=== PATIENT | male | born 1985 | race Caucasian/White ===

== ENCOUNTER 2019-03-31 10:56 | Emergency (ER) | payer MEDICAID ==
[~2019-03-31] VITALS: Wt 97.5 kg
[2019-03-31 11:06] VITALS: BP 143/71; PULSE 62; RESP 18
[2019-03-31] MEDS ORDERED: MAG-19 PO (11:31)
[2019-03-31] MEDS ORDERED: DOCU-144 PO (11:31)
[2019-03-31] MEDS ORDERED: FAMO40TA5 PO (11:31)
--- NOTE | 2019-03-31 11:36 | ERD ---
ER Documentation Chief Complaint Chief Complaint ap x5 days, constipation HPI Is a 33-year-old male who is here complaining of epigastric pain for 5 days. Also constipation. Last bowel movement was yesterday but states it was just a small amount. No blood. States he went to [facility] a couple days ago and they did labs and testing on him all of which was negative and they gave him [place] which he states is not helping. Pain is constant epigastric nonradiating. No vomiting. ROS All systems reviewed and are negative except as per history of present illness. Medications Home Meds Active Scripts Famotidine* (Famotidine*) 40 Mg Tablet, 40 MG PO BID, #30 TAB Prov:TANYA BARRETT PA-C 03/31/19 Magaldrate/Simethicone* (Mylanta*) 355 Ml Susp, 30 ML PO QID PRN for GASTROINTESTINAL UPSET, #1 BOTTLE Prov:TANYA BARRETT PA-C 03/31/19 Docusate Sodium* (Colace*) 100 Mg Capsule, 100 MG PO TID, #30 CAP Prov:TANYA BARRETT PA-C 03/31/19 FmHx Family History: No diabetes Physical Exam Vitals Vital Signs Date Temp Pulse Resp B/P (MAP) Pulse Ox O2 O2 Flow FiO2 Time Delivery Rate 03/31/19 97.9 62 18 143/71 98 11:06 (95) Physical Exam INITIAL VITAL SIGNS: Reviewed by me GENERAL: Awake, alert and oriented x 4, well appearing, nontoxic, speaking in full sentences. No acute distress HEAD: Atraumatic NECK: Supple. No masses. Full range of motion. No meningismus. No midline tenderness. EYES: EOMI. PERRL. RESPIRATORY: Clear to auscultation bilaterally. Symmetric chest wall rise. No wheezing or rales. No accessory muscle use. CV: Regular rate and rhythm. No murmurs, rubs, or gallops. ABDOMEN: Soft, non-distended. Nontender. Negative [place]. Negative McBurneys point tenderness. No CVA tenderness bilaterally. No guarding. No rebound. Procedures/MDM The differential diagnosis includes but is not limited to appendicitis, cholelithiasis, cholecystitis, pancreatitis, hepatitis, gastritis, peptic ulcer disease, bowel obstruction, diverticulitis, renal disease including stones, torsion, AAA, pyelonephritis, and others. Patient exam is normal. States he was seen a couple days ago at [facility] and had a negative work-up. Low s uspicion for emergent etiology for his symptoms. He was given prescription for Mylanta, Colace, and Pepcid. Recommended avoiding spicy and greasy food. Patient counseled regarding my diagnostic impression and care plan. Prior to discharge all questions answered. Pt agrees with treatment plan and understands strict return precautions. Pt is instructed to follow up with primary care provider within 24-48 hours. Precautionary instructions provided including instructions to return to the ER if not improving or for any worsening or changing symptoms or concerns. Departure Diagnosis: Primary Impression: Abdominal pain Condition: Stable Patient Instructions: Abdominal Pain Additional Instructions: Llame al doctor MAANA y roman quintin LON PARA DENTRO DE 1-2 HEIN.Dgale a la secretaria que nosotros le instruimos hacer esta lon.Avise o llame si velasco condicin se empeora antes de la lon. Regresa aqui si peor o no mejor. TANYA BARRETT PA-C March 31, 2019 11:36
[2019-03-31] MEDS ORDERED: BELLADONNA/PHENOBARBITAL TAB PO STA (11:45)
[2019-03-31] MEDS ORDERED: LIDOCAINE/MYLANTA 40 ML BTL PO STA (11:45)
== END 2019-03-31 12:20 | disposition home or self-care (01) ==
LOC: FTE 10:56
DX: R10.13 Epigastric pain (principal)
CPT/HCPCS: Z7502; Z7610; 99283

== ENCOUNTER 2019-04-22 19:44 | Emergency (ER) | payer MEDICAID ==
[~2019-04-22] VITALS: Ht 160 cm; Wt 97.5 kg
[~2019-04-22 19:44] MED LIST: DOCU-144 PO; FAMO40TA5 PO; MAG-19 PO
[2019-04-22 19:57] VITALS: Ht 160 cm; Wt 97.5 kg
[2019-04-22] MEDS ORDERED: FAMOTIDINE 20 MG TAB PO ONE (21:00)
[2019-04-22] MEDS ORDERED: LIDOCAINE/MYLANTA 40 ML BTL PO ONE (21:00)
[2019-04-22] MEDS ORDERED: MAG-19 PO (22:13)
[2019-04-22] MEDS ORDERED: ACET-141 PO (22:13)
[2019-04-22] MEDS ORDERED: IBUP-1561 PO (22:13)
--- NOTE | 2019-04-22 22:15 | ERD ---
ER Documentation Chief Complaint Chief Complaint abdominal pain x 3 weeks ROS All systems reviewed and are negative except as per history of present illness. Medications Home Meds Active Scripts Magaldrate/Simethicone* (Mylanta*) 355 Ml Susp, 30 ML PO QID PRN for GASTROINTESTINAL UPSET, #1 BOTTLE Prov:FLOR HOOPER DO 04/22/19 Acetaminophen* (Acetaminophen*) 500 MG Extra Strength Tablet, 500 MG PO Q4H PRN for PAIN AND OR ELEVATED TEMP, #30 TAB Prov:FLOR HOOPER DO 04/22/19 Ibuprofen* (Motrin*) 400 Mg Tab, 400 MG PO Q6H PRN for PAIN AND OR ELEVATED TEM P, #30 TAB Prov:FLOR HOOPER DO 04/22/19 Famotidine* (Famotidine*) 40 Mg Tablet, 40 MG PO BID, #30 TAB Prov:TANYA BARRETT PA-C 03/31/19 Magaldrate/Simethicone* (Mylanta*) 355 Ml Susp, 30 ML PO QID PRN for GASTROINTESTINAL UPSET, #1 BOTTLE Prov:TANYA BARRETT PA-C 03/31/19 Docusate Sodium* (Colace*) 100 Mg Capsule, 100 MG PO TID, #30 CAP Prov:TANYA BARRETT PA-C 03/31/19 Allergies Allergies: Coded Allergies: No Known Allergy (Unverified , 03/31/19) PMhx/Soc Hx Miscellaneous Medical Probl: Yes (CHOLELITHIASIS, gastritis) Hx Alcohol Use: No Hx Substance Use: No Hx Tobacco Use: No Smoking Status: Never smoker Physical Exam Vitals Vital Signs Date Temp Pulse Resp B/P (MAP) Pulse Ox O2 O2 Flow FiO2 Time Delivery Rate 04/22/19 98.7 70 18 139/72 98 19:57 (94) Physical Exam Const: No acute distress Head: Atraumatic Eyes: Normal Conjunctiva ENT: Normal External Ears, Nose and Mouth. Neck: Full range of motion. No meningismus. Resp: Clear to auscultation bilaterally Cardio: Regular rate and rhythm, no murmurs Abd: Soft, non tender, non distended. Normal bowel sounds Skin: No petechiae or rashes Back: No midline or flank tenderness Ext: No cyanosis, or edema Neur: Awake and alert Psych: Normal Mood and Affect Result Diagram: 04/22/19204004/22/192040 Results 24 hrs Laboratory Tests Test 04/22/19 20:41 White Blood Count 8.3 10^3/ul Red Blood Count 4.97 10^6/ul Hemoglobin 14.1 g/dl Hematocrit 43.3 % Mean Corpuscular Volume 87.1 fl Mean Corpuscular Hemoglobin 28.4 pg Mean Corpuscular Hemoglobin Concent 32.6 g/dl Red Cell Distribution Width 12.5 % Platelet Count 253 10^3/UL Mean Platelet Volume 10.7 fl Immature Granulocytes % 0.200 % Neutrophils % 60.1 % Lymphocytes % 29.5 % Monocytes % 6.3 % Eosinophils % 3.3 % Basophils % 0.6 % Nucleated Red Blood Cells % 0.0 /100WBC Immature Granulocytes # 0.020 10^3/ul Neutrophils # 5.0 10^3/ul Lymphocytes # 2.4 10^3/ul Monocytes # 0.5 10^3/ul Eosinophils # 0.3 10^3/ul Basophils # 0.1 10^3/ul Nucleated Red Blood Cells # 0.0 10^3/ul Urine Color YELLOW Urine Clarity CLOUDY Urine pH 7.0 Urine Specific Ot[place] 1.017 Urine Ketones NEGATIVE mg/dL Urine Nitrite NEGATIVE mg/dL Urine Bilirubin NEGATIVE mg/dL Urine Urobilinogen 1+ mg/dL Urine Leukocyte Esterase NEGATIVE Debbie/ul Urine Microscopic RBC 0 /HPF Urine Microscopic WBC 2 /HPF Urine Amorphous Crystals FEW /HPF Urine Bacteria FEW /HPF Urine Hemoglobin NEGATIVE mg/dL Urine Glucose NEGATIVE mg/dL Urine Total Protein NEGATIVE mg/dl Sodium Level 142 mmol/L Potassium Level 4.1 mmol/L Chloride Level 106 mmol/L Carbon Dioxide Level 28 mmol/L Anion Gap 8 Blood Urea Nitrogen 21 mg/dl Creatinine 1.01 mg/dl Est Glomerular Filtrat Rate mL/min > 60 mL/min Glucose Level 101 mg/dl Calcium Level 9.2 mg/dl Total Bilirubin 0.3 mg/dl Direct Bilirubin 0.00 mg/dl Indirect Bilirubin 0.3 mg/dl Aspartate Amino Transf (AST/SGOT) 38 IU/L Alanine Aminotransferase (ALT/SGPT) 64 IU/L Alkaline Phosphatase 106 IU/L Total Protein 7.5 g/dl Albumin 4.0 g/dl Globulin 3.50 g/dl Albumin/Globulin Ratio 1.14 Lipase 64 U/L Current Medications Medications Dose Sig/Jaguar Start Time Status Last (Trade) Ordered Route PRN Stop Time Admin Dose Reason Admin 40 ml ONCE ONCE 04/22/19 DC 04/22/19 Miscellaneous PO 21:00 20:42 Medication 04/22/19 21:01 (Gi Cocktail (2)) Famotidine 20 mg ONCE ONCE 04/22/19 DC 04/22/19 (Pepcid) PO 21:00 20:42 04/22/19 21:01 Departure Diagnosis: Primary Impression: Abdominal pain Abdominal location: epigastric Qualified Codes: R10.13 - Epigastric pain Additional Impression: Gallstone Cholecystitis presence: without cholecystitis Biliary obstruction: without biliary obstruction Qualified Codes: K80.20 - Calculus of gallbladder without cholecystitis without obstruction Condition: Fair Patient Instructions: Abdominal Pain, Gallstones Referrals: [facility] YOU HAVE RECEIVED A MEDICAL SCREENING EXAM AND THE RESULTS INDICATE THAT YOU DO NOT HAVE A CONDITION THAT REQUIRES URGENT TREATMENT IN THE EMERGENCY DEPARTMENT. FURTHER EVALUATION AND TREATMENT OF YOUR CONDITION CAN WAIT UNTIL YOU ARE SEEN IN YOUR DOCTORS OFFICE WITHIN THE NEXT 1-2 DAYS. IT IS YOUR RESPONSIBILITY TO MAKE AN APPOINTMENT FOR FOLOW-UP CARE. IF YOU HAVE A PRIMARY DOCTOR --you should call your primary doctor and schedule an appointment IF YOU DO NOT HAVE A PRIMARY DOCTOR YOU CAN CALL OUR PHYSICIAN REFERRAL HOTLINE AT IF YOU CAN NOT AFFORD TO SEE A PHYSICIAN YOU CAN CHOSE FROM THE FOLLOWING [facility] [address] [facility] [facility] [address] [facility] [facility] [address] [facility] [facility] [id number] [facility]. [facility] [address] [facility] [facility]. [address] Additional Instructions: Llame al doctor MAANA y roman quintin LON PARA DENTRO DE 1-2 HEIN.Dgale a la se cretaria que nosotros le instruimos hacer esta lon.Avise o llame si velasco condicin se empeora antes de la lon. Regresa aqui si peor o no mejor. FLOR HOOPER DO April 22, 2019 22:15
[2019-04-22 22:20] VITALS: BP 130/75; PULSE 73; RESP 18
[2019-04-22] MEDS ORDERED: IBUPROFEN 600 MG TAB PO ONE (22:30)
== END 2019-04-22 22:40 | disposition home or self-care (01) ==
LOC: FTE 19:44
DX: K80.20 Calculus of gallbladder without cholecystitis without obstruction (principal)
CPT/HCPCS: 36415; 76705; 80053; 81001; 83690; 85025; Z7502; Z7610